=== PATIENT | female | born 1975 | race Caucasian/White ===

== ENCOUNTER → 2020-01-24 08:02 | Outpatient (CLI) | payer OTHER, SELFPAY ==
--- NOTE | 2020-01-24 08:04 | BI_ITS ---
MAMMOGRAPHY - BILATERAL SCREENING REASON FOR EXAM: Female, 44 years old. Routine annual screening examination. PERTINENT HISTORY: Grandmother with breast cancer. TECHNIQUE: Digital bilateral breast jeffrey (3D mammographic acquisition) in the CC and MLO projections. 2-D mediolateral oblique (MLO) and craniocaudad (CC) views of both breasts were obtained. CAD: Full Field Digital Mammography with Computer Added Detection was performed. COMPARISON: Comparison is made with prior study dated April 06, 2015. FINDINGS: Breast Composition: The breasts are almost entirely fatty. There are no dominant masses or suspicious calcifications. Stable benign-appearing bilateral axillary lymph nodes. No other significant abnormalities are identified. There has been no significant change since the prior study. BI/SCREEN MAMM (CAD) W/JEFFREY BILAT IMPRESSION: Stable bilateral screening mammogram. Yearly follow-up mammogram recommended. (A) ASSESSMENT CATEGORY: BIRADS Category 2: Benign. A letter regarding these results will be sent to the patient by the facility within 30 days. Approximately 10% of breast cancers are not detected by mammography. A normal mammogram should not delay biopsy of a clinically suspicious abnormality. [id number] Electronically Signed: Francisco Sanders, at 8:50 EDT , Service support ,
== END ==
PROVIDERS: PCP Family Medicine; Referring Provider Family Medicine; Visit Provider Family Medicine
DX: Z12.31 Encounter for screening mammogram for malignant neoplasm of breast (principal); Z80.3 Family history of malignant neoplasm of breast
CPT/HCPCS: 77063; 77067

== ENCOUNTER → 2020-08-03 | Outpatient (CLI) | payer OTHER, SELFPAY ==
[2020-08-03 13:04] VITALS: BMI 38.4
[2020-08-07 04:51] LABS: HPV APTIMA, High Risk Negative (Negative)
== END | disposition home or self-care (01) ==
LOC: LABSPEC 17:05
PROVIDERS: PCP Family Medicine; Visit Provider Obstetrics & Gynecology
DX: Z12.4 Encounter for screening for malignant neoplasm of cervix (principal)
CPT/HCPCS: 87624; 88175; G0145

== ENCOUNTER → 2020-08-17 10:21 | Outpatient (CLI) | payer OTHER, SELFPAY ==
[2020-08-03 13:04] VITALS: BMI 38.4
--- NOTE | 2020-08-17 10:23 | US_ITS ---
STUDY: ULTRASOUND OF THE FEMALE PELVIS - COMPLETE REASON FOR EXAM: Female, 44 years old. FIBROIDS-AUB LMP: 08/13/2020. TECHNIQUE: Transabdominal and Transvaginal TECHNICAL QUALITY: Adequate. COMPARISON: None. FINDINGS: The uterus is anteverted and is in a midline position. The uterus measures 8.1 cm x 5.4 cm x 4.2 cm. Normal uterine cervix. The endometrium measures 6 mm in thickness, and is hyperechoic. There is no demonstrated endometrial mass. There is a 1.7 cm x 2.1 cm x 2.2 cm fibroid along the right side of the fundal portion of the uterus. I.U.D. - The patient does not have an I.U.D. The right ovary is visualized. The right ovary measures 2.4 cm x 1.7 cm x 1.5 cm. There is no right ovarian cyst or ovarian mass. There is no visualized right adnexal mass or complex lesion. There is normal arterial and normal venous vascularity. The left ovary is visualized. The left ovary measures 2.8 cm x 2.9 cm x 1.2 cm. There is no left ovarian cyst or ovarian mass. There is no visualized left adnexal mass or complex lesion. There is normal arterial and normal venous vascularity. There is no fluid in the cul-de-sac. The pre void volume of the bladder was 874 ml. Polycystic ovary disease: No. US/Pelvic (Non ) IMPRESSION: There is a 1.7 cm x 2.1 cm x 2 cm right fundal uterine fibroid. Electronically Signed: Francisco Sanders, at 13:35 EST , Service support ,
--- NOTE | 2020-08-17 10:23 | US_ITS ---
STUDY: ULTRASOUND OF THE FEMALE PELVIS - COMPLETE REASON FOR EXAM: Female, 44 years old. FIBROIDS-AUB LMP: 08/13/2020. TECHNIQUE: Transabdominal and Transvaginal TECHNICAL QUALITY: Adequate. COMPARISON: None. FINDINGS: The uterus is anteverted and is in a midline position. The uterus measures 8.1 cm x 5.4 cm x 4.2 cm. Normal uterine cervix. The endometrium measures 6 mm in thickness, and is hyperechoic. There is no demonstrated endometrial mass. There is a 1.7 cm x 2.1 cm x 2.2 cm fibroid along the right side of the fundal portion of the uterus. I.U.D. - The patient does not have an I.U.D. The right ovary is visualized. The right ovary measures 2.4 cm x 1.7 cm x 1.5 cm. There is no right ovarian cyst or ovarian mass. There is no visualized right adnexal mass or complex lesion. There is normal arterial and normal venous vascularity. The left ovary is visualized. The left ovary measures 2.8 cm x 2.9 cm x 1.2 cm. There is no left ovarian cyst or ovarian mass. There is no visualized left adnexal mass or complex lesion. There is normal arterial and normal venous vascularity. There is no fluid in the cul-de-sac. The pre void volume of the bladder was 874 ml. Polycystic ovary disease: No. US/Transvaginal Non- IMPRESSION: There is a 1.7 cm x 2.1 cm x 2 cm right fundal uterine fibroid. Electronically Signed: Francisco Sanders, at 13:35 EST , Service support ,
== END ==
PROVIDERS: PCP Family Medicine; Referring Provider Obstetrics & Gynecology; Visit Provider Obstetrics & Gynecology
DX: N93.9 Abnormal uterine and vaginal bleeding, unspecified (principal)
CPT/HCPCS: 76830; 76856

== ENCOUNTER → 2021-06-28 07:10 | Outpatient (CLI) | payer OTHER, SELFPAY ==
--- NOTE | 2021-06-28 07:18 | BI_ITS ---
MAMMOGRAPHY - BILATERAL SCREENING REASON FOR EXAM: Female, 45 years old. Routine annual screening examination. PERTINENT HISTORY: Grandmother with breast cancer. TECHNIQUE: Digital bilateral breast jeffrey (3D mammographic acquisition) in the CC and MLO projections. 2-D mediolateral oblique (MLO) and craniocaudad (CC) views of both breasts were obtained. CAD: Full Field Digital Mammography with Computer Added Detection was performed. COMPARISON: Comparison is made with prior study of 01/24/2020 and 04/06/2015. FINDINGS: Breast Composition: The breasts are almost entirely fatty. There are no dominant masses or suspicious calcifications. No other significant abnormalities are identified. There has been no significant change since the prior study. BI/SCRN MAMM (CAD)W/JEFFREY BILAT IMPRESSION: Stable bilateral screening mammogram. Yearly follow-up mammogram recommended. (A) ASSESSMENT CATEGORY: BIRADS Category 1: Negative. A letter regarding these results will be sent to the patient by the facility within 30 days. Approximately 10% of breast cancers are not detected by mammography. A normal mammogram should not delay biopsy of a clinically suspicious abnormality. [id number] Electronically Signed: Francisco Sanders MD at 8:58 EDT , Service support ,
== END ==
PROVIDERS: PCP Family Medicine; Referring Provider Nurse Practitioner Women's Health; Visit Provider Nurse Practitioner Women's Health
DX: Z12.31 Encounter for screening mammogram for malignant neoplasm of breast (principal); Z80.3 Family history of malignant neoplasm of breast
CPT/HCPCS: 77063; 77067

== ENCOUNTER → 2022-05-26 | Outpatient (CLI) | payer OTHER, SELFPAY ==
[2022-05-26 12:11] LABS: Absolute Lymphocyte Count 2.07 X10^3/uL (0.83-4.51); Absolute Neutrophil Count 5.5 X10^3/uL (2.0-7.7); Basophil# 0.04 X10^3/uL; Basophil% 0.5 % (0-1); Eosinophil# 0.04 X10^3/uL; Eosinophils% 0.5 % (0-5); Hematocrit 38.6 % (37-47); Hemoglobin 12.8 g/dL (12.0-15.0); Lymphocyte # 2.07 X10^3/ul (0.83-4.51); Lymphocyte % 25.8 % (19-41); Mean Corp Hgb Conc 33.2 g/dL (32-36); Mean Corpuscular Hgb 27.9 pg (27.0-32.0); Mean Corpuscular Volume 84.3 fL (81-99); Mean Platelet Vol. 9.7 fl (6.2-12.0); Monocyte# 0.33 X10^3/uL; Monocyte% 4.1 % (0-10); NRBC Flagged by Analyzer 0 % (0-5); Neutrophil # 5.51 X10^3/uL (2.7-7.7); Neutrophil % 68.9 % (47-70); Platelet Count 278 K/mm3 (150-450); RBC Distribution Width SD 39.4 fl (35.1-43.9); Red Blood Count 4.58 M/mm3 (4.2-5.4)
[2022-05-26 12:38] LABS: AST(SGOT) 16 U/L (15-37); Alanine Aminotransfer ALT/SGPT 28 U/L (13-56); Albumin, Serum 3.9 g/dL (3.2-5.0); Alkaline Phosphatase 67 U/L (45-117); Anion Gap 7 (5-15); BUN 14 mg/dL (7-18); BUN/Creat Ratio 17.6 RATIO (10-20); Calcium,Total 9.6 mg/dL (8.5-10.1); Chloride 106 mmol/L (98-107); Cholesterol 159 mg/dL (200); EST Glomerular Filtration Rate 83 mL/min (>60); Est Glom Filt Rate - Afr Amer 100 mL/min (>60); Glucose 100 mg/dL (74-106); High Density Lipoprotein 52 mg/dL; Potassium 3.7 mmol/L (3.5-5.1); Protein, Total 7.9 g/dL (6.4-8.2); Sodium Level 141 mmol/L (136-145); Triglycerides 95 mg/dL; Very Low Density Lipoprotein 19 mg/dL (5-40)
== END | disposition home or self-care (01) ==
LOC: MTLAB 11:09
PROVIDERS: PCP Family Medicine; Referring Provider Family Medicine; Visit Provider Family Medicine
DX: O99.891 Other specified diseases and conditions complicating pregnancy (principal); O14.90 Unspecified pre-eclampsia, unspecified trimester; R03.0 Elevated blood-pressure reading, without diagnosis of hypertension
CPT/HCPCS: 36415; 80053; 80061; 85025

== ENCOUNTER → 2022-07-04 | Outpatient (CLI) | payer OTHER, SELFPAY ==
--- NOTE | 2022-07-04 07:44 | BI_ITS ---
MAMMOGRAPHY - BILATERAL SCREENING REASON FOR EXAM: Female, 46 years old. Routine annual screening examination. PERTINENT HISTORY: Grandmother with breast cancer. TECHNIQUE: Digital bilateral breast jeffrey (3D mammographic acquisition) in the CC and MLO projections. 2-D mediolateral oblique (MLO) and craniocaudad (CC) views of both breasts were obtained. CAD: Full Field Digital Mammography with Computer Added Detection was performed. COMPARISON: Comparison is made with prior study 06/28/2021 and 01/24/2020. FINDINGS: Breast Composition: The breasts are almost entirely fatty. There are no dominant masses or suspicious calcifications. Stable small benign-appearing bilateral axillary lymph nodes. No other significant abnormalities are identified. There has been no significant change since the prior study. BI/SCRN MAMM (CAD)W/JEFFREY BILAT IMPRESSION: Stable bilateral screening mammogram. Yearly follow-up mammogram recommended. (A) ASSESSMENT CATEGORY: BIRADS Category 2: Benign. A letter regarding these results will be sent to the patient by the facility within 30 days. Approximately 10% of breast cancers are not detected by mammography. A normal mammogram should not delay biopsy of a clinically suspicious abnormality. [id number] Electronically Signed: Francisco Sanders MD at 9:02 EDT ,
== END | disposition home or self-care (01) ==
LOC: OPBI 07:43
PROVIDERS: PCP Family Medicine; Visit Provider Nurse Practitioner Women's Health
DX: Z12.31 Encounter for screening mammogram for malignant neoplasm of breast (principal)
CPT/HCPCS: 77063; 77067

== ENCOUNTER → 2023-05-25 | Outpatient (CLI) | payer OTHER, SELFPAY ==
--- NOTE | 2023-05-25 07:53 | US_ITS ---
STUDY: ULTRASOUND OF THE FEMALE PELVIS - COMPLETE REASON FOR EXAM: Female, 47 years old. Bleeding LMP: May 21, 2023. TECHNIQUE: Transabdominal and Transvaginal TECHNICAL QUALITY: Adequate. COMPARISON: Comparison is made with prior study of August 17, 2020. FINDINGS: The uterus is anteverted and is in a midline position. The uterus measures 7.8 cm x 5.9 cm x 3.5 cm. There is a Nabothian cyst of the cervix. The endometrium measures 3.6 mm in thickness, and is hyperechoic. There is no demonstrated endometrial mass. There is no demonstrated myometrial mass. The myometrium is heterogeneous in echotexture. Questionable focal adenomyosis. I.U.D. - The patient does not have an I.U.D. The right ovary is visualized. The right ovary measures 1.9 cm x 1.3 cm x 1.5 cm. There is no right ovarian cyst or ovarian mass. There is no visualized right adnexal mass or complex lesion. There is normal arterial and normal venous vascularity. The left ovary is visualized. The left ovary measures 2.2 cm x 2 cm x 1.4 cm. There is no left ovarian cyst or ovarian mass. There is no visualized left adnexal mass or complex lesion. There is normal arterial and normal venous vascularity. There is no fluid in the cul-de-sac. The pre void volume of the bladder was 711 ml. US/Pelvic (Non ) IMPRESSION: Heterogeneous echotexture of the myometrium and possible focal adenomyosis. Electronically Signed: Francisco Sanders MD at 15:30 EDT ,
== END | disposition home or self-care (01) ==
PROVIDERS: PCP Family Medicine; Visit Provider Nurse Practitioner Women's Health
DX: N92.0 Excessive and frequent menstruation with regular cycle (principal); N94.6 Dysmenorrhea, unspecified; D25.9 Leiomyoma of uterus, unspecified
CPT/HCPCS: 76830; 76856

== ENCOUNTER → 2023-07-06 | Outpatient (CLI) | payer OTHER, SELFPAY ==
--- NOTE | 2023-07-06 09:28 | BI_ITS ---
MAMMOGRAPHY - BILATERAL SCREENING REASON FOR EXAM: Female, 47 years old. Routine annual screening examination. PERTINENT HISTORY: Grandmother with breast cancer. TECHNIQUE: Digital bilateral breast jeffrey (3D mammographic acquisition) in the CC and MLO projections. 2-D mediolateral oblique (MLO) and craniocaudad (CC) views of both breasts were obtained. CAD: Full Field Digital Mammography with Computer Added Detection was performed. COMPARISON: Comparison is made with prior examination July 04, 2022 and June 28, 2021. FINDINGS: Breast Composition: The breasts are almost entirely fatty. There are no dominant masses or suspicious calcifications. No other significant abnormalities are identified. There has been no significant change since the prior study. BI/SCRN MAMM (CAD)W/JEFFREY BILAT IMPRESSION: Stable bilateral screening mammogram. Yearly follow-up mammogram recommended. (A) ASSESSMENT CATEGORY: BIRADS Category 1: Negative. A letter regarding these results will be sent to the patient by the facility within 30 days. Approximately 10% of breast cancers are not detected by mammography. A normal mammogram should not delay biopsy of a clinically suspicious abnormality. [id number] Electronically Signed: Francisco Sanders MD at 15:02 EDT ,
== END | disposition home or self-care (01) ==
LOC: OPBI 09:28
PROVIDERS: PCP Family Medicine; Referring Provider Nurse Practitioner Women's Health; Visit Provider Nurse Practitioner Women's Health
DX: Z12.31 Encounter for screening mammogram for malignant neoplasm of breast (principal)
CPT/HCPCS: 77063; 77067

== ENCOUNTER → 2024-07-11 | Outpatient (CLI) | payer BC, SELFPAY ==
--- NOTE | 2024-07-11 07:13 | BI_ITS ---
MAMMOGRAPHY - BILATERAL SCREENING REASON FOR EXAM: Female, 48 years old. Routine annual screening examination. PERTINENT HISTORY: Grandmother with breast cancer. TECHNIQUE: Digital bilateral breast jeffrey (3D mammographic acquisition) in the CC and MLO projections. 2-D mediolateral oblique (MLO) and craniocaudad (CC) views of both breasts were obtained. CAD: Full Field Digital Mammography with Computer Added Detection was performed. COMPARISON: Comparison is made with prior study dated July 06, 2023 and July 04, 2022. FINDINGS: Breast Composition: The breasts are almost entirely fatty. There are no dominant masses or suspicious calcifications. No other significant abnormalities are identified. There has been no significant change since the prior study. BI/SCRN MAMM (CAD)W/JEFFREY BILAT IMPRESSION: Stable bilateral screening mammogram. Yearly follow-up mammogram recommended. (A) ASSESSMENT CATEGORY: BIRADS Category 1: Negative. A letter regarding these results will be sent to the patient by the facility within 30 days. Approximately 10% of breast cancers are not detected by mammography. A normal mammogram should not delay biopsy of a clinically suspicious abnormality. [id number] Electronically Signed: Francisco Sanders MD at 8:43 EDT ,
--- OUTSIDE RECORDS SUMMARY | 2024-07-11 07:22 | XMS RPT_ITS | CCD ---
Author Organization [facility] Care Team Providers Care Sticker Operator Name Role Phone Pedro Moreno Unavailable Unavailable Pedro Moreno Unavailable Unavailable Jacques Reyes Unavailable Unavailable Rafi Barton Unavailable Tasneem Martinez Unavailable Unavailable Allergies Allergy Classification Reported Allergen(s) Allergy Type Date of Onset Reaction(s) Facility (1 source) cefaclor; Translations: [facility]cl[facility] Penicillins; Translations: [penicillins] Propensity to adverse reactions to drug (disorder) [facility] Sulfonamides (Antibiotic); Translations: [sulfa drugs] Propensity to adverse reactions to drug (disorder) AO, Hives/Urticaria [facility] Repository (1 source) Penicillin Drug Allergy Hives/Urticaria [facility] Medications Current Medications Medication Drug Class(es) Dates Sig (Normalized) Sig (Original) azithromycin 250 mg oral tablet (1 source) Macrolide Antimicrobial Start: 10-28-2021 End: 11-01-2021 Zithromax Z-Larry 250 mg oral tablet ; 2 tab(s) by mouth at once on day 1, then 1 tablet once a day on days 2-5 Quantity: 6 Refills: 0 Ordered: 28-Oct-2021 Tasneem Martinez Start: 28-Oct-2021 End: 01-Nov-2021 Generic Substitution Allowed Comments: Do not take dairy products, antacids, or iron preparations within one hour of this medication.Finish all this medication unless otherwise directed by prescriber. Comment on above: Do not take dairy pr oducts, antacids, or iron preparations within one hour of this medication.Finish all this medication unless otherwise directed by prescriber. Completed/Discontinued Medications Medication Drug Class(es) Dates Sig (Normalized) Sig (Original) polyethylene glycol 3350 41725 mg powder for oral solution (1 source) Osmotic Laxative Start: 10-31-2019 End: 11-29-2019 MiraLax oral powder for reconstitution ; 17 gram(s) orally once a day Quantity: 510 Refills: 0 Ordered: 31-Oct-2019 Amara Navarro Start: 31-Oct-2019 End: 29-Nov-2019 Status: Other Generic Substitution Allowed Comments: Dilute this medication with liquid before administration.It is very important that you take or use this exactly as directed. Do not skip doses or discontinue unless directed by your doctor. Comment on above: Dilute this medicati on with liquid before administration.It is very important that you take or use this exactly as directed. Do not skip doses or discontinue unless directed by your doctor. Problems Problem Classification Problem Date Documented Da te Episodic/Chronic Other upper respiratory infections (2 sources) Acute pharyngitis; Translations: [Acute pharyngitis] 10-28-2021 Episodic Otitis media and related conditions (2 sources) Acute otitis media; Translations: [Unspecified otitis media] 10-28-2021 Episodic Unclassified (2 sources) SORE THROAT EARS LOSS OF VOICE 10-28-2021 Comment on above: SORE THROAT EARS LOS S OF VOICE Results Test Name Value Interpretation Reference Range Facil ity GROUP A STREP,PCRon 10-28-19 22 GROUP A STREP,PCR Not detected Normal Not Detected [facility] Comment on above: Result Comment: This test was performed utilizing an FDA-cleared rapid nucleic acid amplification by PCR to qualitatively detect Group A Streptococci from throat swab specimens without the need for culture confirmation of negative results. Performed By: #### G APC1 #### [place] [address] Lab Specimen Source Throat Normal [facility] Comment on above: Performed By: #### [email or web address] #### [place] [id number] Provider Note - ED v3on 10-19 Provider Note - ED v3 Provider Note: Chart Review HISTORY OF PRESENTING ILLNESS TERESA is a 46 year old Female and was seen by me at 28-Oct-2021 09:46. The historian is the patient. Triage Information: Most recent Vital Sign Value Date PAST MEDICAL HISTORY ALLERGIES/INTOLERANCES: Allergy Allergen: penicillin Type: Drug Reaction: Hives/Urticaria Allergen: sulfa drugs Type: Drug Category Reaction: Hives/Urticaria HEALTH HISTORY: No known health issues. Family history: no pertinent history. Social history: non-smoker. Has a son and grandson. 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 OUTPATIENT MEDICATIONS: Home Medications Review Status for Reconciliation: Complete Med Status: Patient Currently Takes Medications Drug Name: Zithromax Z-Larry 250 mg oral tablet Instructions: 2 tab(s) by mouth at once on day 1, then 1 tablet once a day on days 2-5 SIGNIFICANT EVENTS: History of cholecystectomy, R knee surgery, x 2, and BTL. 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 She reports her son was recently dx'd with presumptive strep (was not tested), so is concerned she might have the same thing. No other known ill contacts. She reports has had to clear her throat a lot. She denies any nasal congestion, headaches, fever, chills, body aches, nausea/vomiting, diarrhea, seasonal allergies, cough, L ear pain, rash, malaise, or other constitutional symptoms. No dizziness or lightheadedness; no changes in mental status. No swelling in legs. Appetite is normal but states it hurts to swallow large bites of food; is able to drink fluids without difficulty. Denies any loss of sense of taste or smell. Reports feels like symptoms are getting worse since onset. Aside from ibuprofen and cough drops, which have been helpful, has not tried any OTC medications or home remedies for symptom management. Has not received the COVID-19 vaccine or flu vaccine this year. Is not a smoker. REVIEW OF SYSTEMS 10 systems reviewed negative with exception of history of present illness listed above PHYSICAL EXAMINATION General: Mildly ill-appearing, pleasant female; alert and oriented; in no acute distress. Sitting comfortably on exam table. Non-dyspneic. Eyes: Pupils equal, round and reactive to light. No conjunctival erythema; no scleral icterus. HENT: No frontal or maxillary sinus tenderness, and no audible nasal congestion. Airway patent, L TM and bilat ear canals clear bilaterally, R TM mildly injected but not retracted or bulging. Nasal mucosa mildly injected and edematous. Oral mucosa moist. Posterior pharynx mildly erythematous but without any tonsillar exudate/swelling or other oropharyngeal exudate/lesions. Uvula is midline. Managing oral secretions without difficulty. Neck: Supple. Tender, mobile anterior cervical lymphadenopathy bilat. Respiratory: Respirations easy and unlabored, Breath sounds equal. Lungs are clear to auscultation; no wheezes, rhonchi, or rales. No cough noted during exam. Cardiovascular: Normal rate, Regular rhythm. Normal S1S2. No m/r/g. Gastrointestinal: Soft, non-tender, non-distended. No palpable masses or organomegaly. Bowel sounds normoactive. Musculoskeletal: Grossly normal; appropriate for age. Integumentary: [place], warm, dry, and Intact. No rashes or skin discoloration appreciated. Good skin turgor. Neurologic: Alert and oriented, no gross deficits. Cognition and Speech: Oriented, Speech clear and coherent. Psychiatric: Cooperative, Appropriate mood & affect. MEDICAL DECISION MAKING Course: Worsening; stable. Impression/Plan: Centor Score of 1-2. Testing for strep sent today, per pt's request, based on possible exposure - based on guidelines, unable to perform rapid-strep in office. Due to upcoming weekend, rx for watch and wait antibiotic provided to cover for AOM and acute pharyngitis, with instructions to begin only if strep test is positive OR if negative, if sxs not improving over the next few days. If started, urged to complete full course of medication (Zithromax), even if symptoms resolve more quickly. Instructed to push fluids, rest, and to use appropriate over the counter medications as needed for management of symptoms - tylenol/ibuprofen, Cepacol, and salt water gargles may be helpful. Advised can review test results on the portal and office will contact pt within the next 24-48 hours. Reviewed instructions for self-isolation and continued mo (more content not included)... Normal [facility] Vital Signs Date Time Vital Sign Value Performing Clinician Melissa dietrich 10-28-2021 11:42-0500 Body height 172.7 cm Rafi Barton Other Phone: [facility] 10-28-2021 11:42-0500 Body temperature 98.6 [degF] Rafi Barton Other Phone: [facility] 10-28-2021 11:42-0500 Diastolic blood pressure 88 mm[Hg] Rafi Barton Other Phone: [facility] 10-28-2021 11:42-0500 Heart rate 80 /min Rafi Barton Other Phone: [facility] 10-28-2021 11:42-0500 Respiratory rate 16 /min Rafi Barton Other Phone: [facility] 10-28-2021 11:42-0500 SaO2% (BldA) [Mass fraction] 98 % Rafi Barton Other Phone: [facility] 10-28-2021 11:42-0500 Systolic blood pressure 147 mm[Hg] Rafi Barton Other Phone: [facility] Encounters Encounter Date Encounter Type Care Provider Facility Start: 10-28-2021 End: 10-28-2021 Emergency department patient visit Tasneem Martinez [facility] Start: 11-17-2017 End: 11-17-2017 Ambulatory Pedro Moreno Facility:[facility] Payers Date Payer Category Payer Unknown Social History Date Type Detail Facility [facility] Tobacco smoking consumption unknown [facility] Summary Purpose Family History No Family History Records FoundNo Family History Records FoundNo Family History Records Found Advance Directives No Advanced Directives Records FoundNo Advanced Directives Records FoundNo Advanced Directives Records Found Additional Source Comments INFORMATION SOURCE (unrecogn ized section and content) DATE CREATED AUTHOR 03/09/2018 [facility] DATE CREATED AUTHOR AUTHOR'S ORGANIZ ATION 10/29/2021 [facility] DATE CREATED AUTHOR AUTHOR'S ORGANIZ ATION 10/29/2021 [facility] <item> Privacy Markings (unrecogniz ed section and content) Section Author: Richa Galloway PROHIBITION ON REDISCLOSURE OF CONFIDENTIAL INFORMATION This notice accompanies a disclosure of information concerning a client made to you with the consent of such client. FOR RECORDS PERTAINING TO PATIENTS WHO ARE OR HAVE BEEN ENROLLED IN A CHEMICAL DEPENDENCY/SUBSTANCEABUSE PROGRAM, SOME INFORMATION MAY BE OMITTED. This clinical summary was aggregated from multiple sources. Caution should be exercised in using it in the provision of clinical care. This summary normalizes information from multiple sources, and as a consequence, information in this document may materially change the coding, format and clinical context of patient data. In addition, data may be omitted in some cases. CLINICAL DECISIONS SHOULD BE BASED ON THE PRIMARY CLINICAL RECORDS. [email or web address] provides no warranty or guarantee of the accuracy or completeness of information in this document.
== END | disposition home or self-care (01) ==
PROVIDERS: PCP Family Medicine; Referring Provider Nurse Practitioner Women's Health; Visit Provider Nurse Practitioner Women's Health
DX: Z12.31 Encounter for screening mammogram for malignant neoplasm of breast (principal)
CPT/HCPCS: 77063; 77067

== ENCOUNTER → 2025-07-14 | Outpatient (CLI) | payer BC, SELFPAY | END | disposition home or self-care (01) | LOC: OPBI 07:27 | PROVIDERS: PCP Family Medicine; Referring Provider Nurse Practitioner Women's Health; Visit Provider Nurse Practitioner Women's Health | DX: Z12.31 Encounter for screening mammogram for malignant neoplasm of breast (principal) | CPT/HCPCS: 77063; 77067 ==

== ENCOUNTER → 2025-07-31 | Outpatient (CLI) | payer BC, SELFPAY ==
[2025-08-02 15:08] LABS: HPV APTIMA, High Risk Negative (Negative)
== END | disposition home or self-care (01) ==
LOC: LABSPEC 12:12
PROVIDERS: PCP Family Medicine; Visit Provider Nurse Practitioner Women's Health
DX: Z12.4 Encounter for screening for malignant neoplasm of cervix (principal)
CPT/HCPCS: 87624; 88175; G0145